=== PATIENT | female | born 1985 | race Two or more races ===

== ENCOUNTER 2020-07-28 22:47 | Emergency (ER) | payer OTHER ==
[~2020-07-28] VITALS: Ht 160 cm; Wt 117.9 kg
[2020-07-29] MEDS ORDERED: PEPCID40 MG PO (02:59)
[2020-07-29] MEDS ORDERED: BENADRYL25 MG PO (02:59)
[2020-07-29] MEDS ORDERED: MEDROL8 MG PO (02:59)
== END 2020-07-29 03:07 ==
LOC: ER 22:47
DX: T78.49XA Other allergy, initial encounter (principal)